=== PATIENT | male | born 1995 | race Native Hawaiian/Other Pacific Islander ===

== ENCOUNTER 2019-01-15 17:55 | Inpatient (IN) | payer MEDICAID, OTHER ==
[~2019-01-15] VITALS: Ht 190.5 cm; Wt 82.5 kg
[2019-01-15 18:52] LABS: Basophils # (auto) 0 uL; Basophils % (auto) 0.3 % (0.0-2.0); Eosinophils # (auto) 0 uL; Hematocrit 51.2 % (41.0-53.0); Hemoglobin 17.1 g/dL (13.5-17.5); Lymphocytes # (auto) 1.5 uL; Lymphocytes % (auto) 11.5 % (10.0-50.0); Mean Corpuscular Hgb Conc. 33.4 g/dL (32.0-36.0); Mean Corpuscular Volume 95.7 fL (80.0-100.0); Monocytes # (auto) 0.8 uL; Monocytes % (auto) 5.8 % (0.0-12.0); Neutrophils # (auto) 10.8 uL; Neutrophils % (auto) 82.4 % (37.0-80.0); Platelet Count (auto) 346 10^3/uL (140-450); Red Blood Cells 5.35 10^6/uL (4.5-5.90); Red Cell Distribution Width 12.9 % (11.8-14.3); White Blood Cell 13.1 10^3/uL (4.4-10.8)
[2019-01-15 19:08] LABS: Albumin 4.7 g/dL (3.4-5.0); Calcium 8.7 mg/dL (8.5-10.1); Potassium 3.3 mmol/L (3.5-5.1)
[2019-01-15 19:10] LABS: BUN/Creatinine Ratio 15.2; Bilirubin, Total 1.6 mg/dL (0.2-1.0); Total Protein 8.2 g/dL (6.4-8.2)
[2019-01-15 19:29] LABS: Urine Bacteria NONE SEEN /hpf (None Seen); Urine Blood TRACE /uL (Negative); Urine Hyaline Cast FEW /lpf (0 - 2); Urine Specific Gravity 1.029 (1.001-1.035); Urine WBC 1 /hpf (0 - 3)
[2019-01-15 19:43] LABS: Amphetamine Screen, Urine NEGATIVE (NEGATIVE); Barbiturate Scree,Urine NEGATIVE (NEGATIVE); Benzodiazephine Screen, Urine NEGATIVE (NEGATIVE); Cannabinoid Screen, Urine NEGATIVE (NEGATIVE); Cocaine Screen, Urine NEGATIVE (NEGATIVE); Opiate Scree,Urine NEGATIVE (NEGATIVE); Phencyclidine Screen, Urine NEGATIVE (NEGATIVE)
[2019-01-15] MEDS ORDERED: PANTOPRAZOLE 40 MG/10 ML VIAL IV ONE (20:45)
[2019-01-15] MEDS ORDERED: chlordiazePOXIDE HCL 5 MG CAP PO PRN (21:15)
[2019-01-15] MEDS ORDERED: ONDANSETRON HCL 4 MG/2 ML VIAL IV PRN (21:15)
[2019-01-15] MEDS: SODIUM CHLORIDE 0.9% 1,000 ML IV SCH (21:48)
[2019-01-15 22:08] LABS: Hematocrit 51.2 % (41.0-53.0); Hemoglobin 17.2 g/dL (13.5-17.5)
[2019-01-15 22:25] LABS: INR 0.93 (0.9-1.15); Partial Thromboplastin Time 27.3 sec (23.78-33.04)
[2019-01-16 06:49] LABS: Basophils # (auto) 0 uL; Basophils % (auto) 0.4 % (0.0-2.0); Eosinophils # (auto) 0 uL; Eosinophils % (auto) 0.3 % (0.0-7.0); Hematocrit 42.6 % (41.0-53.0); Hemoglobin 14.9 g/dL (13.5-17.5); Lymphocytes % (auto) 11.5 % (10.0-50.0); Mean Corpuscular Hemoglobin 32.5 pg (28.0-32.0); Mean Corpuscular Volume 92.9 fL (80.0-100.0); Monocytes % (auto) 11.3 % (0.0-12.0); Neutrophils # (auto) 6.5 uL; Neutrophils % (auto) 76.5 % (37.0-80.0); Platelet Count (auto) 270 10^3/uL (140-450); Red Blood Cells 4.59 10^6/uL (4.5-5.90); Red Cell Distribution Width 12.6 % (11.8-14.3); White Blood Cell 8.5 10^3/uL (4.4-10.8)
[2019-01-16 07:26] LABS: BUN/Creatinine Ratio 17.5; Calcium 8.6 mg/dL (8.5-10.1); Potassium 3.2 mmol/L (3.5-5.1)
[2019-01-16 07:29] LABS: Bilirubin, Total 2.8 mg/dL (0.2-1.0)
[2019-01-16] MEDS: SODIUM CHLORIDE 0.9% 1,000 ML IV SCH ×2 (08:12→19:11)
[2019-01-16] MEDS: PANTOPRAZOLE 40 MG/10 ML VIAL IV SCH (08:24)
[2019-01-16] MEDS ORDERED: POTASSIUM CHL 20MEQ/100ML 100 ML IV SCH (10:45)
[2019-01-16] MEDS ORDERED: POTASSIUM CHLORIDE 40 MEQ, LIDOCAINE 1% (LOCAL ANESTH.) 4 ML in SODIUM CHL 0.9% 100 ML IV ONE (11:00)
[2019-01-16] MEDS: MULTIPLE VITAMIN 10 ML, MAGNESIUM SULF SDV 50% 8 MEQ in SODIUM CHLORIDE 0.9% 1,000 ML IV SCH (14:00)
[2019-01-16 19:01] VITALS: BP 146/83
[2019-01-16 21:46] VITALS: BP 130/80
[2019-01-16] MEDS: SUCRALFATE 1 GM/10 ML ORAL SUSP PO SCH (22:33)
[2019-01-16 23:03] VITALS: BP 130/80
[2019-01-17] MEDS: SODIUM CHLORIDE 0.9% 1,000 ML IV SCH ×3 (00:18→23:15)
[2019-01-17 04:28] VITALS: BP 134/68
[2019-01-17 06:22] LABS: Basophils # (auto) 0 uL; Basophils % (auto) 0.5 % (0.0-2.0); Eosinophils # (auto) 0 uL; Eosinophils % (auto) 0.7 % (0.0-7.0); Hematocrit 40.8 % (41.0-53.0); Hemoglobin 13.9 g/dL (13.5-17.5); Lymphocytes # (auto) 1.9 uL; Lymphocytes % (auto) 29.6 % (10.0-50.0); Mean Corpuscular Hemoglobin 32.4 pg (28.0-32.0); Mean Corpuscular Volume 95.3 fL (80.0-100.0); Monocytes # (auto) 0.6 uL; Neutrophils # (auto) 3.8 uL; Neutrophils % (auto) 60.2 % (37.0-80.0); Nucleated Red Blood Cells % 0.1 %; Platelet Count (auto) 196 10^3/uL (140-450); Red Blood Cells 4.28 10^6/uL (4.5-5.90); Red Cell Distribution Width 12.5 % (11.8-14.3); White Blood Cell 6.4 10^3/uL (4.4-10.8)
[2019-01-17 06:55] LABS: Albumin 3.5 g/dL (3.4-5.0); Bilirubin, Total 3.5 mg/dL (0.2-1.0); Calcium 8.3 mg/dL (8.5-10.1); Magnesium 2.3 mg/dL (1.6-2.6); Total Protein 6.2 g/dL (6.4-8.2)
[2019-01-17] MEDS: SUCRALFATE 1 GM/10 ML ORAL SUSP PO SCH ×4 (07:18→22:12)
[2019-01-17] MEDS: PANTOPRAZOLE 40 MG/10 ML VIAL IV SCH (08:39)
[2019-01-17 08:46] VITALS: BP 126/67
[2019-01-17] MEDS ORDERED: POTASSIUM CHLORIDE 40 MEQ, LIDOCAINE 1% (LOCAL ANESTH.) 4 ML in SODIUM CHL 0.9% 100 ML IV ONE (10:15)
[2019-01-17] MEDS ORDERED: POTASSIUM CHLORIDE 20 MEQ, LIDOCAINE 1% (LOCAL ANESTH.) 2 ML in SODIUM CHL 0.9% 100 ML IV ONE (10:15)
[2019-01-17 12:50] VITALS: BP 137/68
[2019-01-17] MEDS ORDERED: LIDOCAINE VISCOUS 2% 15ML UD ONE (13:49)
[2019-01-17] MEDS ORDERED: SODIUM CHLORIDE LOCK 10 ML ONE (13:49)
[2019-01-17] MEDS: fentaNYL CITRATE 100 MCG/2 ML VL ONE ×2 (16:08→16:11)
[2019-01-17] MEDS: diphenhdrAMINE HCL 50 MG/1 ML VL ONE ×2 (16:08→16:11)
[2019-01-17] MEDS: MIDAZOLAM HCL 5 MG/ML-1ML VIAL ONE ×3 (16:08→16:13)
[2019-01-17 17:57] VITALS: BP 146/89
[2019-01-17 22:00] VITALS: BP 135/90
[2019-01-17] MEDS: MULTIPLE VITAMIN 10 ML, MAGNESIUM SULF SDV 50% 8 MEQ in SODIUM CHLORIDE 0.9% 1,000 ML IV SCH (22:11)
[2019-01-18 05:00] VITALS: BP 139/92
[2019-01-18 06:47] LABS: Calcium 8.5 mg/dL (8.5-10.1)
[2019-01-18 06:51] LABS: Albumin 3.5 g/dL (3.4-5.0); BUN/Creatinine Ratio 5.4
[2019-01-18] MEDS: SUCRALFATE 1 GM/10 ML ORAL SUSP PO SCH ×2 (06:52→11:49)
[2019-01-18 06:53] LABS: Bilirubin, Total 1.4 mg/dL (0.2-1.0); Total Protein 6.4 g/dL (6.4-8.2)
[2019-01-18] MEDS: SODIUM CHLORIDE 0.9% 1,000 ML IV SCH (09:15)
[2019-01-18 09:16] VITALS: BP 125/74
[2019-01-18] MEDS: PANTOPRAZOLE 40 MG/10 ML VIAL IV SCH (10:00)
[2019-01-18] MEDS: MULTIPLE VITAMIN 10 ML, MAGNESIUM SULF SDV 50% 8 MEQ in SODIUM CHLORIDE 0.9% 1,000 ML IV SCH (12:00)
[2019-01-18] MEDS ORDERED: POTASSIUM CHL 20 Meq TABLET PO ONE (12:00)
[2019-01-18 12:10] VITALS: BP 125/74
[2019-01-18 13:42] VITALS: BP 123/78
== END 2019-01-18 13:25 | disposition home or self-care (01) | DRG 241 ==
LOC: EDBD 17:55 → ER 18:07 → OVERFLOW 21:17 → EAST 01-16 16:52
PROVIDERS: ADMIT Nurse Practitioner; ATTEND Internal Medicine
PROC: 0DB88ZX Excision of Small Intestine, Via Natural or Artificial Opening Endoscopic, Diagnostic (ICD-10-PCS; 2019-01-17)
PROC: 0DB68ZX Excision of Stomach, Via Natural or Artificial Opening Endoscopic, Diagnostic (ICD-10-PCS; 2019-01-17)
PROC: 0DB38ZX Excision of Lower Esophagus, Via Natural or Artificial Opening Endoscopic, Diagnostic (ICD-10-PCS; principal; 2019-01-17 15:57)
DX: K29.21 Alcoholic gastritis with bleeding (principal); K22.11 Ulcer of esophagus with bleeding; K70.30 Alcoholic cirrhosis of liver without ascites; E86.0 Dehydration; K25.4 Chronic or unspecified gastric ulcer with hemorrhage; E87.6 Hypokalemia; F17.210 Nicotine dependence, cigarettes, uncomplicated; F10.229 Alcohol dependence with intoxication, unspecified; K44.9 Diaphragmatic hernia without obstruction or gangrene; K76.0 Fatty (change of) liver, not elsewhere classified; Z91.19 Patient's noncompliance with other medical treatment and regimen
CPT/HCPCS: 36415; 74177; 80053; 80307; 80320; 81001; 82150; 83690; 83735; 85014; 85018; 85025; 85610; 85730; 86850; 86900; 86901; 96361; 96365; 96375; C9113; G0378; J2001; J2250; J2405

== ENCOUNTER 2020-03-16 22:14 | Emergency (ER) | payer MEDICAID ==
[~2020-03-16] VITALS: Ht 188 cm; Wt 81.6 kg
[2020-03-16] MEDS ORDERED: SODIUM CHLORIDE 0.9% 1,000 ML IVB ONE (22:36)
[2020-03-16] MEDS ORDERED: LORazepam 2MG/ML-1ML VIAL IV ONE (22:45)
[2020-03-16] MEDS ORDERED: ONDANSETRON HCL 4 MG/2 ML VIAL IV ONE (22:45)
[2020-03-16 23:17] LABS: Basophils # (auto) 0 10 ^3/uL (0-0.2); Basophils % (auto) 0.2 % (0.0-2.0); Eosinophils # (auto) 0 10 ^3/uL (0-0.8); Eosinophils % (auto) 0.1 % (0.0-7.0); Hematocrit 44.3 % (41.0-53.0); Hemoglobin 15.3 g/dL (13.5-17.5); Lymphocytes % (auto) 9.7 % (10.0-50.0); Mean Corpuscular Hemoglobin 32.3 pg (28.0-32.0); Mean Corpuscular Hgb Conc. 34.7 g/dL (32.0-36.0); Mean Corpuscular Volume 93.3 fL (80.0-100.0); Monocytes # (auto) 1.5 10 ^3/uL (0-1.3); Monocytes % (auto) 15.1 % (0.0-12.0); Neutrophils # (auto) 7.7 10 ^3/uL (1.6-8.6); Neutrophils % (auto) 74.9 % (37.0-80.0); Platelet Count (auto) 302 10^3/uL (140-450); Red Blood Cells 4.75 10^6/uL (4.5-5.90); Red Cell Distribution Width 12.9 % (11.8-14.3); White Blood Cell 10.3 10^3/uL (4.4-10.8)
[2020-03-16 23:32] LABS: INR 1.05 (0.9-1.15); Partial Thromboplastin Time 25.8 sec (23.64-32.05)
[2020-03-16 23:36] LABS: Alanine Aminotransferase 63 U/L (16-61); Albumin 4.6 g/dL (3.4-5.0); Amylase 101 U/L (25-115); Anion Gap 13 (5-15); Aspartate Aminotransferase 38 U/L (15-37); BUN/Creatinine Ratio 11.5; Blood Alcohol < 3.0 mg/dL (0-5); Blood Urea Nitrogen 19 mg/dL (7-18); Calcium 9.5 mg/dL (8.5-10.1); Carbon Dioxide 29 mmol/L (21-32); Chloride 91 mmol/L (98-107); GFR African American 66 mL/min; GFR Non-African American 54 mL/min; Glucose 128 mg/dL (74-106); Lipase 376 U/L (73-393); Magnesium 1.3 mg/dL (1.6-2.6); Sodium 133 mmol/L (136-145)
[2020-03-16 23:39] LABS: Potassium 2.4 mmol/L (3.5-5.1)
[2020-03-16 23:40] LABS: Alkaline Phosphatase 100 U/L (45-117); Bilirubin, Total 2.3 mg/dL (0.2-1.0); Lactic Acid w/Reflex 4.9 mmol/L (0.4-2.0); Total Protein 8.5 g/dL (6.4-8.2)
[2020-03-17] MEDS: POTASSIUM CHL 20MEQ/100ML 100 ML IV SCH ×3 (00:28→04:41)
[2020-03-17 02:53] LABS: Urine Bacteria FEW /hpf (None Seen); Urine Blood Negative /uL (Negative); Urine Hyaline Cast MANY /lpf (0 - 2); Urine Mucus FEW (None Seen); Urine Specific Gravity 1.028 (1.001-1.035); Urine WBC 2 /hpf (0 - 3)
[2020-03-17] MEDS ORDERED: PANTOPRAZOLE 40 MG/10 ML VIAL INJ IV ONE (03:45)
[2020-03-17] MEDS: MAGNESIUM SULFATE 1GM/100ML 100 ML IV SCH ×3 (04:40→06:47)
[2020-03-17 06:00] VITALS: BP 124/84
== END 2020-03-17 07:53 | disposition home or self-care (01) ==
LOC: EDBD 22:14 → ER 22:19
DX: N17.9 Acute kidney failure, unspecified (principal); E87.6 Hypokalemia; E83.42 Hypomagnesemia; F10.239 Alcohol dependence with withdrawal, unspecified; Y90.9 Presence of alcohol in blood, level not specified; R11.2 Nausea with vomiting, unspecified
CPT/HCPCS: 36415; 71045; 80053; 80320; 81001; 82150; 83605; 83690; 83735; 85025; 85610; 85730; 87040; 87070; 87880; 93005; 96361; 96365; 96366; 96368; 96375; 99285; C9113; J2060; J2405; J3475; J3480; 96367